=== PATIENT | female | born 2000 | race Two or more races ===

== ENCOUNTER 2023-08-01 20:41 | Emergency (ER) | payer BC ==
[~2023-08-01] VITALS: Ht 162.6 cm; Wt 65.8 kg
[2023-08-01] MEDS ORDERED: CLARITIN10 M1 (20:55)
[2023-08-01] MEDS ORDERED: FLONASE16 GM NS (20:55)
== END 2023-08-01 22:36 | disposition home or self-care (01) ==
LOC: ER 20:41
DX: T63.691A Toxic effect of contact with other venomous marine animals, accidental (unintentional), initial encounter (principal); X58.XXXA Exposure to other specified factors, initial encounter; Y93.89 Activity, other specified; Y92.832 Beach as the place of occurrence of the external cause; S99.822A Other specified injuries of left foot, initial encounter; S99.821A Other specified injuries of right foot, initial encounter